=== PATIENT | female | born 1930 | race Caucasian/White ===

== ENCOUNTER 2016-05-28 03:22 | Observation (INO) | payer OTHER ==
[~2016-05-28] VITALS: Ht 165.1 cm; Wt 55.9 kg
[~2016-05-28 03:22] MED LIST: ACETAMINOPHEN500 MG PO; AMBIEN5 M1 PO; AMBIEN5 MG PO; ATIVAN0.5 MG PO; Antivert PO; CYMBALTA30 MG PO; GABAPENTIN100 M1 PO; GABAPENTIN400 MG PO; KEFLEX500 MG PO; MECLIZINE HCL12.5 M1 PO; MIRALAX17 GM PO; MIRALAX255 GM PO; NORVASC2.5 MG PO; NORVASC5 MG PO; Norvasc PO; PROTONIX40 MG PO; TRAMADOL HCL50 MG PO; TYLENOL PM1 CAPLET PO; TYLENOL WITH C1 EACH PO; Tylenol PM PO; ULTRAM50 MG PO; XANAX0.125 MG PO; XANAX0.25 MG PO; XANAX1 MG PO; ZOFRAN4 MG PO
[2016-05-28 03:58] LABS: BASOPHIL COUNT 0.1 K/uL (0-0.1); EOSINOPHIL (%) 2.5 % (0-5); EOSINOPHIL COUNT 0.2 K/uL (0-0.3); HEMATOCRIT 28.1 % (36.0-46.0); IMMATURE GRANULOCYTE (%) 0.3 % (0.0-0.7); INSTRUMENT ABS NEUTROPHIL CT 3.6 K/uL; LYMPHOCYTE COUNT 2.8 K/uL (1.0-2.8); MCH 36.3 PG (29.0-34.0); MCHC 33.8 G/DL (30.0-36.0); MCV 107.3 FL (83-99); MONOCYTE (%) 7.4 % (3-12); MONOCYTE COUNT 0.5 K/uL (0-0.8); NEUTROPHIL (%) 50.6 % (45-76); NEUTROPHIL COUNT 3.6 K/uL (1.8-6.4); PLATELET COUNT 139 K/uL (156-360); RBC DIS.WIDTH-CV 14.2 % (11.8-14.6); RBC DIS.WIDTH-SD 55.3 % (39-53); RED BLOOD COUNT 2.62 M/uL (3.80-5.20); WHITE BLOOD COUNT 7.1 K/uL (4.1-10.2)
[2016-05-28 04:11] LABS: CHLORIDE 98 mEq/L (99-109); POTASSIUM 3.9 mEq/L (3.7-5.4); SODIUM 138 mEq/L (136-147)
[2016-05-28 04:13] LABS: GLUCOSE 116 mg/dL (70-99)
[2016-05-28 04:14] LABS: ANION GAP 9 MEQ/L (2-14)
[2016-05-28 04:16] LABS: INTER. NORMALIZED RATIO 1.1; PROTHROMBIN TIME 11.5 (9.2-11.2); PTT 21.2 (25-32)
[2016-05-28 04:17] LABS: GFR ESTIMATE (CALCULATED) > 59 mL/min/; UREA NITROGEN (BUN) 18 mg/dL (9-23)
[2016-05-28 04:23] LABS: TROP-I INTERPRETATION NEGATIVE; TROPONIN-I 0.01 ng/mL (0.0-0.30)
[2016-05-28 05:58] LABS: HDL CHOLESTEROL 57 MG/DL (Desirable>=50); LDL CHOLESTEROL 112 mg/dL (Desirable<100); NON-HDL CHOLESTEROL 122 mg/dL (Desirable<160); TOTAL CHOLESTEROL 179 mg/dL (Desirable<200); TRIGLYCERIDES 51 MG/DL (Normal: <150)
[2016-05-28 06:22] LABS: Estimated Average Glucose 97 mg/dL (70-123)
[2016-05-28 07:58] VITALS: BP 141/71
[2016-05-28 10:45] LABS: ADD MIUA? YES; BILIRUBIN NEGATIVE; BLOOD NEGATIVE; COLOR YELLOW ((YELLOW)); GLUCOSE (STRIP) NEGATIVE; KETONES NEGATIVE; LEUKOCYTES TRACE; NITRITE NEGATIVE; PROTEIN (STRIP) NEGATIVE; UROBILINOGEN 0.2 MG/DL (0.2-1.0)
[2016-05-28 10:51] VITALS: BP 136/77
[2016-05-28 11:08] LABS: EPITHELIAL CELLS RARE /HPF; MUCUS NONE SEEN /LPF; RED BLOOD CELLS 0-5 /HPF (0-5); UCUL ADDED? NO; UNCLASSIFIED CRYSTALS 3+ /HPF; WHITE BLOOD CELLS 0-5 /HPF (0-5)
[2016-05-28 11:19] LABS: AMORPHOUS PHOSPHATE CRYSTALS 3+; CRYSTALS PRESENT
[2016-05-28 12:03] LABS: BACTERIA NONE SEEN /HPF
[2016-05-28] MEDS ORDERED: EXTRA STRENGTH500 M1 PO (15:02)
[2016-05-28] MEDS ORDERED: XANAX1 MG PO (15:13)
[2016-05-28] MEDS ORDERED: MILK OF MAGN PO (15:14)
[2016-05-28] MEDS ORDERED: TRAMADOL HCL50 MG PO (15:17)
[2016-05-28] MEDS ORDERED: NORVASC2.5 MG PO (15:19)
[2016-05-28] MEDS ORDERED: COLACE100 MG PO (15:21)
[2016-05-28] MEDS ORDERED: MECLIZINE HCL12.5 M1 PO (15:22)
[2016-05-28 16:18] VITALS: BP 180/88
[2016-05-28 16:40] VITALS: BP 150/82
[2016-05-28 19:52] VITALS: BP 176/88
[2016-05-29] VITALS (7 sets, daily range): BP systolic 119–184; BP diastolic 64–87
[2016-05-30 04:19] VITALS: BP 161/72
[2016-05-30 07:37] VITALS: BP 169/84
[2016-05-30 12:04] VITALS: BP 132/78
[2016-05-30 16:15] VITALS: BP 144/88
[2016-05-30 23:53] VITALS: BP 150/80
[2016-05-31 07:30] VITALS: BP 163/80
[2016-05-31] MEDS ORDERED: AMLODIPINE BESYL5 MG PO (13:32)
[2016-05-31] MEDS ORDERED: HYDROCODON-ACE1 EAC7 PO (13:32)
[2016-05-31 15:33] VITALS: BP 130/82
== END 2016-05-31 16:15 | disposition home or self-care (01) ==
LOC: EME → EDBD 03:22 → 3EAST 05:15 → EDOF 05:15 → 3EAST 05:15
PROVIDERS: Emergency Medicine
DX: S42.295A Other nondisplaced fracture of upper end of left humerus, initial encounter for closed fracture (principal); W01.0XXA Fall on same level from slipping, tripping and stumbling without subsequent striking against object, initial encounter; Y92.121 Bathroom in nursing home as the place of occurrence of the external cause; D64.9 Anemia, unspecified; I10 Essential (primary) hypertension; Z96.643 Presence of artificial hip joint, bilateral; K21.9 Gastro-esophageal reflux disease without esophagitis; M19.90 Unspecified osteoarthritis, unspecified site; F32.9 Major depressive disorder, single episode, unspecified; F41.9 Anxiety disorder, unspecified
CPT/HCPCS: 70450; 71010; 73030; 73080; 73502; 80048; 80061; 81003; 83036; 84484; 85025; 85610; 85730; 93005; 99281; 99285; G0378; J2270; J2405

== ENCOUNTER 2016-10-20 04:23 | Emergency (ER) | payer OTHER ==
[~2016-10-20] VITALS: Ht 170.2 cm; Wt 54.5 kg
[~2016-10-20 04:23] MED LIST changes: +AMLODIPINE BESYL5 MG PO; +COLACE100 MG PO; +EXTRA STRENGTH500 M1 PO; +HYDROCODON-ACE1 EAC7 PO; +MILK OF MAGN PO
[2016-10-20 05:30] LABS: INTER. NORMALIZED RATIO 1.1; PROTHROMBIN TIME 11.8 SEC (10.2-12.9)
[2016-10-20 05:32] LABS: CHLORIDE 103 mEq/L (99-109); POTASSIUM 3.3 mEq/L (3.7-5.4); SODIUM 142 mEq/L (136-147)
[2016-10-20 05:33] LABS: GLUCOSE 107 mg/dL (70-99); PTT 30.5 SEC (25-37)
[2016-10-20 05:35] LABS: ANION GAP 9 MEQ/L (2-14)
[2016-10-20 05:37] LABS: GFR ESTIMATE (CALCULATED) > 59 mL/min/
[2016-10-20 05:38] LABS: UREA NITROGEN (BUN) 12 mg/dL (9-23)
[2016-10-20 05:46] LABS: BASOPHIL COUNT 0.1 K/uL (0-0.1); EOSINOPHIL (%) 4.3 % (0-5); EOSINOPHIL COUNT 0.4 K/uL (0-0.3); HEMATOCRIT 33.5 % (36.0-46.0); IMMATURE GRANULOCYTE (%) 0.3 % (0.0-0.7); INSTRUMENT ABS NEUTROPHIL CT 3.1 K/uL; MCH 32.2 PG (29.0-34.0); MCHC 32.5 G/DL (30.0-36.0); MCV 98.8 FL (83-99); MONOCYTE (%) 7.5 % (3-12); MONOCYTE COUNT 0.7 K/uL (0-0.8); NEUTROPHIL (%) 32.9 % (45-76); NEUTROPHIL COUNT 3.1 K/uL (1.8-6.4); PLATELET COUNT 240 K/uL (156-360); RBC DIS.WIDTH-CV 14.3 % (11.8-14.6); RED BLOOD COUNT 3.39 M/uL (3.80-5.20); WHITE BLOOD COUNT 9.3 K/uL (4.1-10.2)
[2016-10-20 07:01] VITALS: BP 175/82
== END 2016-10-20 08:12 | disposition home or self-care (01) ==
LOC: EME 04:23
PROVIDERS: Emergency Medicine
DX: K21.9 Gastro-esophageal reflux disease without esophagitis (principal); I10 Essential (primary) hypertension; S70.01XA Contusion of right hip, initial encounter; S80.02XA Contusion of left knee, initial encounter; S09.90XA Unspecified injury of head, initial encounter; W18.30XA Fall on same level, unspecified, initial encounter; Y92.129 Unspecified place in nursing home as the place of occurrence of the external cause; Y93.01 Activity, walking, marching and hiking; Z96.643 Presence of artificial hip joint, bilateral
CPT/HCPCS: 70450; 73502; 73564; 80048; 85025; 85610; 85730; 99281; 99284; J3010

== ENCOUNTER 2016-10-23 16:18 | Emergency (ER) | payer OTHER ==
[~2016-10-23] VITALS: Ht 165.1 cm; Wt 51.0 kg
[2016-10-23 17:03] LABS: HEMATOCRIT 31.7 % (36.0-46.0); MCH 31.9 PG (29.0-34.0); MCHC 32.2 G/DL (30.0-36.0); MCV 99.1 FL (83-99); PLATELET COUNT 212 K/uL (156-360); RBC DIS.WIDTH-CV 14.1 % (11.8-14.6); RBC DIS.WIDTH-SD 50.8 % (39-53); WHITE BLOOD COUNT 6.8 K/uL (4.1-10.2)
[2016-10-23 17:15] LABS: CHLORIDE 102 mEq/L (99-109); SODIUM 140 mEq/L (136-147)
[2016-10-23 17:17] LABS: GLUCOSE 86 mg/dL (70-99); POTASSIUM 4.1 mEq/L (3.7-5.4)
[2016-10-23 17:18] LABS: ANION GAP 7 MEQ/L (2-14)
[2016-10-23 17:20] LABS: GFR ESTIMATE (CALCULATED) > 59 mL/min/
[2016-10-23 17:21] LABS: UREA NITROGEN (BUN) 14 mg/dL (9-23)
[2016-10-23 17:26] LABS: TROP-I INTERPRETATION NEGATIVE; TROPONIN-I < 0.01 ng/mL (0.0-0.30)
[2016-10-23 19:39] LABS: ADD MIUA? YES; BILIRUBIN NEGATIVE; BLOOD NEGATIVE; COLOR YELLOW ((YELLOW)); GLUCOSE (STRIP) NEGATIVE; KETONES NEGATIVE; LEUKOCYTES LARGE; NITRITE NEGATIVE; PROTEIN (STRIP) NEGATIVE; SPECIFIC GRAVITY 1.008 (1.000-1.030); UROBILINOGEN 0.2 MG/DL (0.2-1.0)
[2016-10-23 20:05] LABS: BACTERIA 1+ /HPF; EPITHELIAL CELLS 1+ /HPF; MUCUS RARE /LPF; RED BLOOD CELLS 0-5 /HPF (0-5); UCUL ADDED? YES; WHITE BLOOD CELLS 30-40 /HPF (0-5)
[2016-10-23 20:20] LABS: TROP-I INTERPRETATION NEGATIVE; TROPONIN-I < 0.01 ng/mL (0.0-0.30)
[2016-10-23] MEDS ORDERED: KEFLEX500 MG PO (20:39)
[2016-10-23 22:52] VITALS: BP 162/92
== END 2016-10-23 22:55 | disposition home or self-care (01) ==
LOC: EME 16:18
PROVIDERS: Emergency Medicine
DX: N39.0 Urinary tract infection, site not specified (principal); R07.89 Other chest pain; F03.90 Unspecified dementia, unspecified severity, without behavioral disturbance, psychotic disturbance, mood disturbance, and anxiety; Z91.81 History of falling; K21.9 Gastro-esophageal reflux disease without esophagitis; I10 Essential (primary) hypertension; Z96.643 Presence of artificial hip joint, bilateral
CPT/HCPCS: 70450; 71010; 80048; 81003; 84484; 85027; 87086 GA; 93005; 99281; 99285

== ENCOUNTER 2016-10-25 10:22 | Emergency (ER) | payer OTHER ==
[~2016-10-25] VITALS: Ht 152.4 cm; Wt 52.0 kg
[2016-10-25 11:53] LABS: HEMATOCRIT 33.4 % (36.0-46.0); MCH 32.2 PG (29.0-34.0); MCHC 32.6 G/DL (30.0-36.0); MCV 98.8 FL (83-99); MEAN PLAT.VOLUME 9.1 uM^3 (9.5-12.4); PLATELET COUNT 214 K/uL (156-360); RBC DIS.WIDTH-CV 14.3 % (11.8-14.6); RBC DIS.WIDTH-SD 51.2 % (39-53); RED BLOOD COUNT 3.38 M/uL (3.80-5.20); WHITE BLOOD COUNT 9.4 K/uL (4.1-10.2)
[2016-10-25 12:05] LABS: CHLORIDE 101 mEq/L (99-109); POTASSIUM 3.8 mEq/L (3.7-5.4); SODIUM 140 mEq/L (136-147)
[2016-10-25 12:08] LABS: GLUCOSE 72 mg/dL (70-99)
[2016-10-25 12:09] LABS: ANION GAP 8 MEQ/L (2-14)
[2016-10-25 12:10] LABS: TOTAL BILIRUBIN 1.3 mg/dL (0.0-1.0)
[2016-10-25 12:11] LABS: ALKALINE PHOSPHATASE 82 IU/L (3-129); GFR ESTIMATE (CALCULATED) > 59 mL/min/
[2016-10-25 12:13] LABS: UREA NITROGEN (BUN) 17 mg/dL (9-23)
[2016-10-25 13:08] LABS: ADD MIUA? YES; BILIRUBIN NEGATIVE; BLOOD SMALL; COLOR YELLOW ((YELLOW)); GLUCOSE (STRIP) NEGATIVE; KETONES NEGATIVE; LEUKOCYTES MODERATE; NITRITE NEGATIVE; PROTEIN (STRIP) NEGATIVE; SPECIFIC GRAVITY 1.023 (1.000-1.030); UROBILINOGEN 0.2 MG/DL (0.2-1.0)
[2016-10-25 13:16] LABS: BACTERIA NONE SEEN /HPF; EPITHELIAL CELLS RARE /HPF; MUCUS TRACE /LPF; RED BLOOD CELLS 0-5 /HPF (0-5); UCUL ADDED? YES; WHITE BLOOD CELLS 15-20 /HPF (0-5)
[2016-10-25 15:04] VITALS: BP 172/80
== END 2016-10-25 16:29 | disposition home or self-care (01) ==
LOC: EME 10:22
PROVIDERS: Emergency Medicine
DX: K59.00 Constipation, unspecified (principal); K21.9 Gastro-esophageal reflux disease without esophagitis; F32.9 Major depressive disorder, single episode, unspecified; I10 Essential (primary) hypertension; F03.90 Unspecified dementia, unspecified severity, without behavioral disturbance, psychotic disturbance, mood disturbance, and anxiety; Z87.440 Personal history of urinary (tract) infections; Z96.643 Presence of artificial hip joint, bilateral; Z88.1 Allergy status to other antibiotic agents; Z88.6 Allergy status to analgesic agent
CPT/HCPCS: 74177; 80053; 81003; 85027; 87086; 99281; 99285

== ENCOUNTER 2016-12-17 23:48 | Emergency (ER) | payer OTHER ==
[~2016-12-17] VITALS: Ht 165.1 cm; Wt 54.8 kg
[2016-12-18 00:20] LABS: BASOPHIL COUNT 0.1 K/uL (0-0.1); EOSINOPHIL (%) 5.3 % (0-5); EOSINOPHIL COUNT 0.4 K/uL (0-0.3); HEMATOCRIT 36.5 % (36.0-46.0); IMMATURE GRANULOCYTE (%) 0.8 % (0.0-0.7); IMMATURE GRANULOCYTE COUNT 0.1 K/uL; INSTRUMENT ABS NEUTROPHIL CT 3.4 K/uL; LYMPHOCYTE COUNT 2.7 K/uL (1.0-2.8); MCHC 31.5 G/DL (30.0-36.0); MCV 91.9 FL (83-99); MEAN PLAT.VOLUME 8.8 uM^3 (9.5-12.4); MONOCYTE (%) 7.8 % (3-12); MONOCYTE COUNT 0.6 K/uL (0-0.8); NEUTROPHIL (%) 47.5 % (45-76); NEUTROPHIL COUNT 3.4 K/uL (1.8-6.4); PLATELET COUNT 195 K/uL (156-360); RBC DIS.WIDTH-CV 13.5 % (11.8-14.6); RBC DIS.WIDTH-SD 45.7 % (39-53); RED BLOOD COUNT 3.97 M/uL (3.80-5.20); WHITE BLOOD COUNT 7.1 K/uL (4.1-10.2)
[2016-12-18 00:30] LABS: CHLORIDE 100 mEq/L (99-109); POTASSIUM 3.7 mEq/L (3.7-5.4); SODIUM 137 mEq/L (136-147)
[2016-12-18 00:32] LABS: GLUCOSE 105 mg/dL (70-99)
[2016-12-18 00:33] LABS: ANION GAP 6 MEQ/L (2-14)
[2016-12-18 00:34] LABS: TOTAL BILIRUBIN 0.5 mg/dL (0.0-1.0)
[2016-12-18 00:35] LABS: ALKALINE PHOSPHATASE 84 IU/L (3-129)
[2016-12-18 00:36] LABS: GFR ESTIMATE (CALCULATED) > 59 mL/min/
[2016-12-18 00:37] LABS: UREA NITROGEN (BUN) 16 mg/dL (9-23)
[2016-12-18 00:40] LABS: TROP-I INTERPRETATION NEGATIVE; TROPONIN-I < 0.01 ng/mL (0.0-0.30)
[2016-12-18 00:41] LABS: ADD MIUA? YES; BILIRUBIN NEGATIVE; BLOOD SMALL; COLOR YELLOW ((YELLOW)); GLUCOSE (STRIP) NEGATIVE; KETONES NEGATIVE; LEUKOCYTES LARGE; NITRITE NEGATIVE; PROTEIN (STRIP) NEGATIVE; SPECIFIC GRAVITY 1.006 (1.000-1.030); UROBILINOGEN 0.2 MG/DL (0.2-1.0)
[2016-12-18 01:09] LABS: EPITHELIAL CELLS RARE /HPF; RED BLOOD CELLS 0-5 /HPF (0-5); WHITE BLOOD CELLS TNTC /HPF (0-5)
[2016-12-18 01:10] LABS: BACTERIA RARE /HPF; CASTS NONE SEEN /LPF; CRYSTALS NONE SEEN; MUCUS NONE SEEN /LPF
[2016-12-18 02:23] VITALS: BP 122/79
== END 2016-12-18 02:27 | disposition home or self-care (01) ==
LOC: EME → EDBD 23:48 → EME 23:48
PROVIDERS: Emergency Medicine
DX: S70.02XA Contusion of left hip, initial encounter (principal); S09.90XA Unspecified injury of head, initial encounter; M25.551 Pain in right hip; M25.522 Pain in left elbow; W01.0XXA Fall on same level from slipping, tripping and stumbling without subsequent striking against object, initial encounter; Y92.193 Bedroom in other specified residential institution as the place of occurrence of the external cause; Z96.643 Presence of artificial hip joint, bilateral; F03.90 Unspecified dementia, unspecified severity, without behavioral disturbance, psychotic disturbance, mood disturbance, and anxiety; R82.99 Other abnormal findings in urine
CPT/HCPCS: 70450; 71020; 73080; 73502; 80053; 81003; 84484; 85025; 87086; 93005; 99281; 99285

== ENCOUNTER 2016-12-19 10:16 | Emergency (ER) | payer OTHER ==
[~2016-12-19] VITALS: Ht 167.6 cm; Wt 53.3 kg
[2016-12-19 14:45] VITALS: BP 180/81
== END 2016-12-19 14:47 | disposition home or self-care (01) ==
LOC: EME → EDBD 10:16 → EME 10:16
DX: S70.02XA Contusion of left hip, initial encounter (principal); W18.30XA Fall on same level, unspecified, initial encounter; Y92.129 Unspecified place in nursing home as the place of occurrence of the external cause; Y99.8 Other external cause status; I10 Essential (primary) hypertension; F03.90 Unspecified dementia, unspecified severity, without behavioral disturbance, psychotic disturbance, mood disturbance, and anxiety; K21.9 Gastro-esophageal reflux disease without esophagitis; M19.90 Unspecified osteoarthritis, unspecified site; F32.9 Major depressive disorder, single episode, unspecified; Z96.643 Presence of artificial hip joint, bilateral; Z88.0 Allergy status to penicillin; Z88.8 Allergy status to other drugs, medicaments and biological substances
CPT/HCPCS: 73502; 99281; 99284

== ENCOUNTER 2017-02-26 06:28 | Emergency (ER) | payer OTHER ==
[~2017-02-26] VITALS: Ht 167.6 cm; Wt 52.0 kg
[2017-02-26 08:06] LABS: ADD MIUA? YES; BILIRUBIN NEGATIVE; BLOOD SMALL; COLOR STRAW ((YELLOW)); GLUCOSE (STRIP) NEGATIVE; KETONES NEGATIVE; LEUKOCYTES LARGE; NITRITE NEGATIVE; PROTEIN (STRIP) NEGATIVE; SPECIFIC GRAVITY 1.008 (1.000-1.030); UROBILINOGEN 0.2 MG/DL (0.2-1.0)
[2017-02-26 08:19] LABS: BACTERIA RARE /HPF; EPITHELIAL CELLS 1+ /HPF; MUCUS NONE SEEN /LPF; RED BLOOD CELLS 0-5 /HPF (0-5); UCUL ADDED? YES; WHITE BLOOD CELLS TNTC /HPF (0-5)
[2017-02-26] MEDS ORDERED: MACROBID100 MG PO (12:23)
[2017-02-26 13:25] VITALS: BP 162/112
== END 2017-02-26 13:26 | disposition home or self-care (01) ==
LOC: EME → EDBD 06:28 → EME 13:26
PROVIDERS: Emergency Medicine
DX: S70.02XA Contusion of left hip, initial encounter (principal); S32.592A Other specified fracture of left pubis, initial encounter for closed fracture; S32.512A Fracture of superior rim of left pubis, initial encounter for closed fracture; R51 Headache; W06.XXXA Fall from bed, initial encounter; Y92.193 Bedroom in other specified residential institution as the place of occurrence of the external cause; N39.0 Urinary tract infection, site not specified; Z96.643 Presence of artificial hip joint, bilateral; F03.90 Unspecified dementia, unspecified severity, without behavioral disturbance, psychotic disturbance, mood disturbance, and anxiety
CPT/HCPCS: 72192; 73502; 81003; 87077; 87086; 87186; 99281; 99284

== ENCOUNTER 2017-03-05 19:57 | Observation (INO) | payer OTHER ==
[~2017-03-05] VITALS: Ht 167.6 cm; Wt 53.2 kg
[~2017-03-05 19:57] MED LIST changes: -EXTRA STRENGTH500 M1 PO; +MACROBID100 MG PO; +TYLENOL REGULA325 MG PO
[2017-03-05 20:25] LABS: HEMATOCRIT 33.2 % (36.0-46.0); MCH 30.5 PG (29.0-34.0); MCHC 33.4 G/DL (30.0-36.0); MCV 91.2 FL (83-99); MEAN PLAT.VOLUME 8.3 uM^3 (9.5-12.4); PLATELET COUNT 223 K/uL (156-360); RBC DIS.WIDTH-CV 14.7 % (11.8-14.6); RBC DIS.WIDTH-SD 49.3 % (39-53); RED BLOOD COUNT 3.64 M/uL (3.80-5.20); WHITE BLOOD COUNT 9.9 K/uL (4.1-10.2)
[2017-03-05 20:35] LABS: CHLORIDE 102 mEq/L (99-109)
[2017-03-05 20:36] LABS: SODIUM 137 mEq/L (136-147)
[2017-03-05 20:38] LABS: GLUCOSE 119 mg/dL (70-99)
[2017-03-05 20:39] LABS: ANION GAP 8 MEQ/L (2-14)
[2017-03-05 20:40] LABS: TOTAL BILIRUBIN 0.6 mg/dL (0.0-1.0)
[2017-03-05 20:41] LABS: ALKALINE PHOSPHATASE 97 IU/L (3-129)
[2017-03-05 20:42] LABS: GFR ESTIMATE (CALCULATED) > 59 mL/min/
[2017-03-05 20:43] LABS: DIRECT BILIRUBIN 0.2 mg/dL (0.0-0.3); UREA NITROGEN (BUN) 17 mg/dL (9-23)
[2017-03-05 20:45] LABS: LIPASE 188 U/L (1.0-51.0)
[2017-03-05 20:46] LABS: TROP-I INTERPRETATION NEGATIVE; TROPONIN-I < 0.01 ng/mL (0.0-0.30)
[2017-03-05 22:00] LABS: PROTHROMBIN TIME 11.9 SEC (10.2-12.9)
[2017-03-05 22:03] LABS: PTT 30.6 SEC (25-37)
[2017-03-05] MEDS ORDERED: ACIDOPHILUS1 EAC3 PO (23:02)
[2017-03-05] MEDS ORDERED: CYANOCOBAL1000 MCG/2 IM (23:04)
[2017-03-05] MEDS ORDERED: FERROUS SULFAT325 MG PO (23:04)
[2017-03-05] MEDS ORDERED: ANTIVERT12.5 MG PO ×2 (23:05→23:09)
[2017-03-05] MEDS ORDERED: ZOLOFT50 MG PO (23:06)
[2017-03-05] MEDS ORDERED: BACTRIM,SEPT1 TABLET PO (23:06)
[2017-03-05] MEDS ORDERED: ANTACID PLUS A PO (23:07)
[2017-03-05] MEDS ORDERED: FLONASE16 G1 BOTH NARES (23:08)
[2017-03-05] MEDS ORDERED: BENGAY GREASELE57 GM TP (23:08)
[2017-03-05] MEDS ORDERED: TYLENOL REGULA325 MG PO (23:08)
[2017-03-05] MEDS ORDERED: PHILLIPS'400 MG/5 M PO (23:09)
[2017-03-05] MEDS ORDERED: TRAMADOL HCL50 MG PO (23:10)
[2017-03-05 23:22] VITALS: BP 130/83
[2017-03-06 00:58] LABS: TROP-I INTERPRETATION NEGATIVE; TROPONIN-I < 0.01 ng/mL (0.0-0.30)
[2017-03-06 03:55] VITALS: BP 152/62
[2017-03-06 04:33] LABS: INTERNAL CONTROL VALID? YES
[2017-03-06 05:29] LABS: HEMATOCRIT 34.4 % (36.0-46.0); MCH 29.8 PG (29.0-34.0); MCHC 32.3 G/DL (30.0-36.0); MCV 92.2 FL (83-99); MEAN PLAT.VOLUME 8.6 uM^3 (9.5-12.4); PLATELET COUNT 214 K/uL (156-360); RBC DIS.WIDTH-CV 14.8 % (11.8-14.6); RBC DIS.WIDTH-SD 50.3 % (39-53); RED BLOOD COUNT 3.73 M/uL (3.80-5.20); WHITE BLOOD COUNT 8.5 K/uL (4.1-10.2)
[2017-03-06 06:00] LABS: TROP-I INTERPRETATION NEGATIVE; TROPONIN-I < 0.01 ng/mL (0.0-0.30)
[2017-03-06 06:11] LABS: ANION GAP 6 MEQ/L (2-14); CHLORIDE 101 MEQ/L (99-109); GFR ESTIMATE (CALCULATED) > 59 mL/min/; POTASSIUM 4.3 MEQ/L (3.7-5.4); SAMPLE HEMOLYSIS CHECK 0; SAMPLE ICTERIC CHECK 0; SAMPLE LIPEMIA CHECK 0; SODIUM 139 MEQ/L (136-147); UREA NITROGEN (BUN) 15 mg/dL (9-23)
[2017-03-06 06:12] LABS: GLUCOSE 77 mg/dL (70-99)
[2017-03-06 08:30] VITALS: BP 148/84
[2017-03-06 11:32] VITALS: BP 167/76
[2017-03-06] MEDS ORDERED: AMLODIPINE BESYL5 MG PO (11:45)
[2017-03-06] MEDS ORDERED: LEVAQUIN750 MG PO (11:48)
== END 2017-03-06 13:50 ==
LOC: EME → EDBD 19:57 → EME 19:57 → EDOF 21:17 → ENRESERV 21:18 → 5WEST 22:55 → ENPENDDIS 03-06 12:55 → 5WEST 03-06 13:50
PROVIDERS: Emergency Medicine; Hospitalist
DX: R07.9 Chest pain, unspecified (principal); R10.32 Left lower quadrant pain; K92.1 Melena; K59.00 Constipation, unspecified; K80.00 Calculus of gallbladder with acute cholecystitis without obstruction; I10 Essential (primary) hypertension; K21.9 Gastro-esophageal reflux disease without esophagitis; F41.9 Anxiety disorder, unspecified; Z96.643 Presence of artificial hip joint, bilateral; F03.90 Unspecified dementia, unspecified severity, without behavioral disturbance, psychotic disturbance, mood disturbance, and anxiety; M19.90 Unspecified osteoarthritis, unspecified site; Z88.0 Allergy status to penicillin; Z88.1 Allergy status to other antibiotic agents; Z88.8 Allergy status to other drugs, medicaments and biological substances
CPT/HCPCS: 71020; 71275; 74177; 80048; 80076; 81003; 82272; 83690; 83880; 84484; 85014; 85018; 85027; 85379; 85610; 85730; 93005; C9113; G0378; J1650; J1956; J7040

== ENCOUNTER 2017-04-21 04:38 | Emergency (ER) | payer OTHER ==
[~2017-04-21] VITALS: Ht 170.2 cm; Wt 52.2 kg
[~2017-04-21 04:38] MED LIST changes: +ACIDOPHILUS1 EAC3 PO; +ANTACID PLUS A PO; +ANTIVERT12.5 MG PO; +BACTRIM,SEPT1 TABLET PO; +BENGAY GREASELE57 GM TP; +CYANOCOBAL1000 MCG/2 IM; +FERROUS SULFAT325 MG PO; +FLONASE16 G1 BOTH NARES; +LEVAQUIN750 MG PO; +PHILLIPS'400 MG/5 M PO; +ZOLOFT50 MG PO
[2017-04-21 08:23] VITALS: BP 156/84
== END 2017-04-21 08:27 | disposition home or self-care (01) ==
LOC: EME → EDBD 04:38 → EME 04:38
DX: S61.411A Laceration without foreign body of right hand, initial encounter (principal); S00.511A Abrasion of lip, initial encounter; W18.30XA Fall on same level, unspecified, initial encounter; Y92.099 Unspecified place in other non-institutional residence as the place of occurrence of the external cause; Z23 Encounter for immunization; Z88.0 Allergy status to penicillin; Z88.8 Allergy status to other drugs, medicaments and biological substances
CPT/HCPCS: 70450; 73130; 99281; 99284

== ENCOUNTER 2017-06-18 01:36 | Emergency (ER) | payer OTHER ==
[~2017-06-18] VITALS: Ht 166.4 cm; Wt 56.8 kg
[2017-06-18 02:17] LABS: HEMATOCRIT 36.1 % (36.0-46.0); MCHC 33.2 G/DL (30.0-36.0); MCV 93.3 FL (83-99); PLATELET COUNT 212 K/uL (156-360); RBC DIS.WIDTH-CV 12.9 % (11.8-14.6); RED BLOOD COUNT 3.87 M/uL (3.80-5.20); WHITE BLOOD COUNT 7.8 K/uL (4.1-10.2)
[2017-06-18 02:21] LABS: APPEARANCE CLEAR ((CLEAR)); BILIRUBIN NEGATIVE; BLOOD NEGATIVE; COLOR STRAW ((YELLOW)); GLUCOSE (STRIP) NEGATIVE; KETONES NEGATIVE; LEUKOCYTES MODERATE; NITRITE NEGATIVE; PROTEIN (STRIP) NEGATIVE; SPECIFIC GRAVITY 1.009 (1.000-1.030); UROBILINOGEN 0.2 MG/DL (0.2-1.0)
[2017-06-18 02:24] LABS: BACTERIA NONE SEEN /HPF; EPITHELIAL CELLS RARE /HPF; MUCUS TRACE /LPF; RED BLOOD CELLS 0-5 /HPF (0-5); UCUL ADDED? YES; WHITE BLOOD CELLS 40-50 /HPF (0-5)
[2017-06-18 02:27] LABS: CHLORIDE 101 mEq/L (99-109); POTASSIUM 3.8 mEq/L (3.7-5.4); SODIUM 141 mEq/L (136-147)
[2017-06-18 02:29] LABS: GLUCOSE 87 mg/dL (70-99)
[2017-06-18 02:33] LABS: CREATININE 0.8 mg/dL (0.6-1.3); GFR ESTIMATE (CALCULATED) > 59 mL/min/
[2017-06-18 02:34] LABS: UREA NITROGEN (BUN) 15 mg/dL (9-23)
[2017-06-18 02:37] LABS: TROP-I INTERPRETATION NEGATIVE; TROPONIN-I < 0.01 ng/mL (0.0-0.30)
[2017-06-18] MEDS ORDERED: CIPRO250 MG PO (04:13)
[2017-06-18 06:19] VITALS: BP 179/81
== END 2017-06-18 06:10 | disposition home or self-care (01) ==
LOC: EME → EDBD 01:36 → EME 01:36
PROVIDERS: Emergency Medicine
PROC: 0HQ1XZZ Repair Face Skin, External Approach (ICD-10-PCS; principal; 2017-06-18)
DX: N30.90 Cystitis, unspecified without hematuria (principal); S01.112A Laceration without foreign body of left eyelid and periocular area, initial encounter; W18.30XA Fall on same level, unspecified, initial encounter; Y92.121 Bathroom in nursing home as the place of occurrence of the external cause; I10 Essential (primary) hypertension; G30.9 Alzheimer's disease, unspecified; F02.80 Dementia in other diseases classified elsewhere, unspecified severity, without behavioral disturbance, psychotic disturbance, mood disturbance, and anxiety; K21.9 Gastro-esophageal reflux disease without esophagitis; G62.9 Polyneuropathy, unspecified; M19.91 Primary osteoarthritis, unspecified site; K59.00 Constipation, unspecified; F32.9 Major depressive disorder, single episode, unspecified; Z88.0 Allergy status to penicillin; Z88.5 Allergy status to narcotic agent; Z88.1 Allergy status to other antibiotic agents; Z88.8 Allergy status to other drugs, medicaments and biological substances
CPT/HCPCS: 70450; 71045; 72125; 80048; 81003; 84484; 85027; 87086; 93005; 99281; 99285

== ENCOUNTER 2017-07-16 00:16 | Emergency (ER) | payer OTHER ==
[~2017-07-16] VITALS: Ht 167.6 cm; Wt 55.8 kg
[~2017-07-16 00:16] MED LIST changes: +CIPRO250 MG PO
[2017-07-16 01:05] LABS: HEMOGLOBIN 11.1 G/DL (11.9-15.5); MCH 31.2 PG (29.0-34.0); MCHC 32.6 G/DL (30.0-36.0); MCV 95.5 FL (83-99); PLATELET COUNT 199 K/uL (156-360); RBC DIS.WIDTH-CV 13.2 % (11.8-14.6); RBC DIS.WIDTH-SD 46.3 % (39-53); RED BLOOD COUNT 3.56 M/uL (3.80-5.20); WHITE BLOOD COUNT 7.4 K/uL (4.1-10.2)
[2017-07-16 01:14] LABS: ALBUMIN 3.9 g/dL (3.2-4.8); CHLORIDE 103 mEq/L (99-109); POTASSIUM 4.1 mEq/L (3.7-5.4); SODIUM 141 mEq/L (136-147)
[2017-07-16 01:16] LABS: GLUCOSE 94 mg/dL (70-99); TOTAL PROTEIN 6.6 g/dL (6.4-8.3)
[2017-07-16 01:18] LABS: TOTAL BILIRUBIN 0.6 mg/dL (0.0-1.0)
[2017-07-16 01:20] LABS: ALKALINE PHOSPHATASE 92 IU/L (3-129); CREATININE 0.9 mg/dL (0.6-1.3); GFR ESTIMATE (CALCULATED) > 59 mL/min/
[2017-07-16 01:21] LABS: UREA NITROGEN (BUN) 16 mg/dL (9-23)
[2017-07-16 01:22] LABS: AST (GOT) 20 IU/L (2-34)
[2017-07-16 01:23] LABS: ALT (GPT) 13 IU/L (3-49); LIPASE 52 U/L (1.0-51.0)
[2017-07-16 01:29] LABS: TROP-I INTERPRETATION NEGATIVE; TROPONIN-I < 0.01 ng/mL (0.0-0.30)
[2017-07-16 02:58] LABS: APPEARANCE CLEAR ((CLEAR)); BILIRUBIN NEGATIVE; BLOOD NEGATIVE; COLOR STRAW ((YELLOW)); GLUCOSE (STRIP) NEGATIVE; KETONES NEGATIVE; LEUKOCYTES LARGE; NITRITE NEGATIVE; PROTEIN (STRIP) NEGATIVE; SPECIFIC GRAVITY 1.004 (1.000-1.030); UROBILINOGEN 0.2 MG/DL (0.2-1.0)
[2017-07-16 03:01] LABS: BACTERIA RARE /HPF; EPITHELIAL CELLS RARE /HPF; MUCUS NONE SEEN /LPF; RED BLOOD CELLS 0-5 /HPF (0-5); UCUL ADDED? YES; WHITE BLOOD CELLS TNTC /HPF (0-5)
[2017-07-16] MEDS ORDERED: KEFLEX500 MG PO (03:16)
[2017-07-16 04:44] VITALS: BP 163/89
== END 2017-07-16 04:52 | disposition home or self-care (01) ==
LOC: EME → EDBD 00:16 → EME 04:52
PROVIDERS: Emergency Medicine
DX: N30.90 Cystitis, unspecified without hematuria (principal); S00.93XA Contusion of unspecified part of head, initial encounter; S80.02XA Contusion of left knee, initial encounter; W18.12XA Fall from or off toilet with subsequent striking against object, initial encounter; Y92.091 Bathroom in other non-institutional residence as the place of occurrence of the external cause; F02.80 Dementia in other diseases classified elsewhere, unspecified severity, without behavioral disturbance, psychotic disturbance, mood disturbance, and anxiety; G30.9 Alzheimer's disease, unspecified; K21.9 Gastro-esophageal reflux disease without esophagitis; F32.9 Major depressive disorder, single episode, unspecified; I10 Essential (primary) hypertension; Z88.0 Allergy status to penicillin; Z88.6 Allergy status to analgesic agent; Z88.1 Allergy status to other antibiotic agents
CPT/HCPCS: 70450; 71045; 72125; 73564; 80053; 81003; 83690; 84484; 85027; 87086; 93005; 99281; 99285

== ENCOUNTER 2017-07-22 23:15 | Emergency (ER) | payer OTHER ==
[~2017-07-22] VITALS: Ht 167.6 cm; Wt 54.2 kg
[2017-07-22 23:48] LABS: HEMATOCRIT 31.2 % (36.0-46.0); HEMOGLOBIN 10.4 G/DL (11.9-15.5); MCH 31.6 PG (29.0-34.0); MCHC 33.3 G/DL (30.0-36.0); MCV 94.8 FL (83-99); PLATELET COUNT 207 K/uL (156-360); RBC DIS.WIDTH-CV 13.2 % (11.8-14.6); RBC DIS.WIDTH-SD 45.5 % (39-53); RED BLOOD COUNT 3.29 M/uL (3.80-5.20); WHITE BLOOD COUNT 7.2 K/uL (4.1-10.2)
[2017-07-22 23:58] LABS: CHLORIDE 104 mEq/L (99-109); POTASSIUM 3.9 mEq/L (3.7-5.4); SODIUM 141 mEq/L (136-147)
[2017-07-22 23:59] LABS: GLUCOSE 92 mg/dL (70-99)
[2017-07-23 00:03] LABS: CREATININE 0.8 mg/dL (0.6-1.3); GFR ESTIMATE (CALCULATED) > 59 mL/min/
[2017-07-23 00:04] LABS: UREA NITROGEN (BUN) 15 mg/dL (9-23)
[2017-07-23 00:09] LABS: TROP-I INTERPRETATION NEGATIVE; TROPONIN-I < 0.01 ng/mL (0.0-0.30)
[2017-07-23 01:00] LABS: APPEARANCE CLEAR ((CLEAR)); BILIRUBIN NEGATIVE; BLOOD NEGATIVE; COLOR YELLOW ((YELLOW)); GLUCOSE (STRIP) NEGATIVE; KETONES NEGATIVE; LEUKOCYTES NEGATIVE; NITRITE NEGATIVE; PROTEIN (STRIP) NEGATIVE; SPECIFIC GRAVITY 1.018 (1.000-1.030); UCUL ADDED? NO; UROBILINOGEN 0.2 MG/DL (0.2-1.0)
[2017-07-23 02:24] VITALS: BP 118/56
== END 2017-07-23 02:25 | disposition home or self-care (01) ==
LOC: EME 23:15
PROVIDERS: Emergency Medicine
DX: S00.93XA Contusion of unspecified part of head, initial encounter (principal); W01.0XXA Fall on same level from slipping, tripping and stumbling without subsequent striking against object, initial encounter; R00.1 Bradycardia, unspecified; I45.10 Unspecified right bundle-branch block; I10 Essential (primary) hypertension; K21.9 Gastro-esophageal reflux disease without esophagitis; G62.9 Polyneuropathy, unspecified; G30.9 Alzheimer's disease, unspecified; F02.80 Dementia in other diseases classified elsewhere, unspecified severity, without behavioral disturbance, psychotic disturbance, mood disturbance, and anxiety; R42 Dizziness and giddiness; K59.00 Constipation, unspecified; M19.91 Primary osteoarthritis, unspecified site; F32.9 Major depressive disorder, single episode, unspecified; Z88.0 Allergy status to penicillin; Z88.6 Allergy status to analgesic agent; Z88.5 Allergy status to narcotic agent; Z88.1 Allergy status to other antibiotic agents
CPT/HCPCS: 70450; 80048; 81003; 84484; 85027; 93005; 99281; 99285